=== PATIENT | female | born 1985 | race Caucasian/White ===

== ENCOUNTER 2017-02-06 14:44 | Emergency (ER) | payer BC ==
[2017-02-06 14:48] VITALS: RESP 20
[2017-02-06] MEDS ORDERED: HYDROcodone/APAP 5-325MG 1 EACH TAB PO STA (15:05)
--- NOTE | 2017-02-06 15:10 | ED ---
Lower Extremity Injury HPI - General Chief Complaint: Extremity Injury, Lower Stated Complaint: Leg injury Time Seen by Provider: 02/06/17 14:51 Source: patient, RN notes reviewed Mode of arrival: ambulatory Limitations: no limitations - History of Present Illness Initial Comments: Patient is a 31-year-old female presents to the emergency room for evaluation of left groin pain and bruising. Patient states she was playing softball on Monday. Patient states that she strained a muscle in her groin. Patient states that she kept playing. Patient states that she also had a softball tournament yesterday and still continued to play. Patient states she woke up this morning and noticed bruising on the proximal medial portion of her thigh along with severe pain. Patient states she's been taking ibuprofen with no relief of symptoms. Patient denies history of blood clots. Patient denies taking any blood thinners. Patient states she's having constant 10 out of 10 pain that is worse with movement. Patient denies any direct/blunt trauma to her leg. Patient denies any other injuries or complaints. - Related Data Home Medications Medication Instructions Recorded Confirmed Ibuprofen [Motrin] 800 mg PO Q8H PRN 02/06/17 02/06/17 Previous Rx's Medication Instructions Recorded HYDROcodone/APAP 5-325MG [[place] 1 tab PO Q6HR PRN #12 tab 02/06/17 5-325] Orphenadrine [Norflex] 100 mg PO Q12H PRN #12 tablet.er 02/06/17 Allergies Allergy/AdvReac Type Severity Reaction Status Date / Time No Known Allergies Allergy Verified 02/06/17 15:38 Review of Systems ROS Statement: Those systems with pertinent positive or pertinent negative responses have been documented in the HPI. ROS Other: All systems not noted in ROS Statement are negative. Past Medical History Past Medical History: No Reported History History of Any Multi-Drug Resistant Organisms: None Reported Past Surgical History: Orthopedic Surgery Past Psychological History: Anxiety Smoking Status: Current every day smoker Past Alcohol Use History: Occasional Past Drug Use History: Marijuana General Exam - General Exam Comments Initial Comments: Sitting in exam room, no distress. Limitations: no limitations General appearance: alert, in no apparent distress Head exam: Present: atraumatic, normocephalic, normal inspection Eye exam: Present: normal appearance ENT exam: Present: normal exam Neck exam: Present: normal inspection Respiratory exam: Absent: respiratory distress Left Upper Leg exam: Present: tenderness (Palpating over the hematoma), ecchymosis ( Ecchymosis/hematoma on proximal medial portion of the thigh). Absent: normal inspection Knee exam: Present: normal inspection, full ROM. Absent: tenderness Lower Leg exam: Present: normal inspection, full ROM. Absent: tenderness Ankle exam: Present: normal inspection, full ROM. Absent: tenderness Neurovascular tendon exam: Present: no vascular compromise. Absent: pulse deficit (2+ dorsal pedal and posterior tibial pulses), abnormal cap refill ( Capillary refill less than 2 seconds) Back exam: Present: normal inspection Neurological exam: Present: alert, oriented X3, CN II-XII intact Psychiatric exam: Present: normal affect, normal mood Skin exam: Present: warm, dry, intact. Absent: rash Course Vital Signs 02/06/17 02/06/17 14:46 17:07 Temperature 97.7 F 97.3 F L Pulse Rate 86 98 Respiratory 20 20 Rate Blood Pressure 138/69 119/70 O2 Sat by Pulse 99 99 Oximetry Medical Decision Making - Medical Decision Making patient is a 31-year-old female presents to emergency room for evaluation of left leg pain and bruising. X-ray shows no significant findings. Ultrasound shows no sign of DVT. Advised to continue icing the area. Patient sent him with pain medications and advised to follow-up with primary care provider. Patient states she understands her diagnosis discussed with her. Return parameters discussed. Case discussed with Dr. Walker. - Radiology Data Radiology results: report reviewed, image reviewed Disposition Clinical Impression: Hematoma of left lower extremity, Muscle strain Disposition: HOME SELF-CARE Condition: Good Instructions: Muscle Strain (ED), Hematoma (ED) Additional Instructions: Ice on and off for 10-15 minutes for the next 24-48 hours. Take pain medications as needed. Please follow-up with primary care provider if symptoms do not improve in 7-10 days. If new symptoms develop or symptoms worsen, please return to the ER. Prescriptions: HYDROcodone/APAP 5-325MG [[place] 5-325] 1 tab PO Q6HR PRN #12 tab PRN Reason: Pain Orphenadrine [Norflex] 100 mg PO Q12H PRN #12 tablet.er PRN Reason: Pain Referrals: Jorge Kelly MD [Primary Care Provider] - 1-2 days Time of Disposition: 16:54
--- NOTE | 2017-02-06 15:30 | XR ---
EXAMINATION TYPE: XR pelvis AP view DATE OF EXAM: 02/06/2017 CLINICAL HISTORY: pain TECHNIQUE: Single view the pelvis is submitted. FINDINGS: No evidence for fracture, dislocation or bony lesion. Joint spaces are well-preserved. S I joints appear symmetric. IMPRESSION: 1. No acute fracture or dislocation seen. ICD 10 NO FRACTURE, INITIAL EVALUATION
--- NOTE | 2017-02-06 15:31 | XR ---
EXAMINATION TYPE: XR femur LT DATE OF EXAM: 02/06/2017 CLINICAL HISTORY: pain TECHNIQUE: Two views of the left femur are obtained. COMPARISON: None. FINDINGS: There is no acute fracture or dislocation seen of the femur. The hip and knee joints carly ear within normal limits. The overlying soft tissue appears unremarkable. IMPRESSION: There is no acute fracture or dislocation seen of the femur. ICD 10 NO FRACTURE, INITIAL EVALUATION
--- NOTE | 2017-02-06 16:22 | US ---
EXAMINATION TYPE: US venous doppler duplex LE LT DATE OF EXAM: 02/06/2017 3:59 PM COMPARISON: NONE CLINICAL HISTORY: 31-year-old female with pain, bruise on medial upper left thigh. Patient states di ving while playing softball on Monday. No hx of DVT or on blood thinners. SIDE PERFORMED: Left TECHNIQUE: The lower extremity deep venous system is examined utilizing real time linear array sonog jemal with graded compression, doppler sonography and color-flow sonography. FINDINGS: VESSELS IMAGED: External Iliac Vein (EIV) Common Femoral Vein Deep Femoral Vein Greater Saphenous Vein * Femoral Vein Popliteal Vein Small Saphenous Vein * Proximal Calf Veins (* superficial vessels) Left Leg: Appears negative for DVT IMPRESSION: No evidence for DVT within the left lower extremity imaged from the groin to the upper calf.
[2017-02-06 17:08] VITALS: BP 119/70; PULSE 98; TEMP 97.3
== END 2017-02-06 17:08 | disposition home or self-care (01) ==
LOC: EC 14:44
DX: S86.912A Strain of unspecified muscle(s) and tendon(s) at lower leg level, left leg, initial encounter (principal); F17.200 Nicotine dependence, unspecified, uncomplicated; X58.XXXA Exposure to other specified factors, initial encounter; Y93.64 Activity, baseball
CPT/HCPCS: 72170; 99284

== ENCOUNTER 2017-05-07 06:58 | Emergency (ER) | payer BC ==
[2017-05-07 07:06] VITALS: BP 117/77; PULSE 122; RESP 20; TEMP 99.1
[2017-05-07] MEDS ORDERED: KETOROLAC 30 MG/ML 1 ML VIAL IM STA (07:31)
--- NOTE | 2017-05-07 08:05 | ED ---
General Adult HPI - General Chief complaint: Wound/Laceration Stated complaint: Leg Laceration Time Seen by Provider: 05/07/17 07:22 Source: patient, RN notes reviewed Mode of arrival: ambulatory - History of Present Illness Initial comments: 32-year-old female with no significant past medical history presents status post fall with left knee laceration. Patient was climbing into a window of her home after locking herself, slipped and hit her knee on the DTE meter box. Patient was ambulatory. Pain only over the laceration. She states her tetanus was updated 2 years ago. No other injury. No old for ankle pain. No hip pain. No head or neck trauma. - Related Data Previous Rx's Medication Instructions Recorded Cephalexin [Keflex] 500 mg PO Q8HR #21 cap 05/07/17 Ibuprofen [Motrin] 600 mg PO Q8HR PRN #24 tab 05/07/17 Allergies Allergy/AdvReac Type Severity Reaction Status Date / Time No Known Allergies Allergy Verified 02/06/17 15:38 Review of Systems ROS Statement: Those systems with pertinent positive or pertinent negative responses have been documented in the HPI. ROS Other: All systems not noted in ROS Statement are negative. Past Medical History Past Medical History: No Reported History History of Any Multi-Drug Resistant Organisms: None Reported Past Surgical History: Orthopedic Surgery Past Psychological History: Anxiety Smoking Status: Current every day smoker Past Alcohol Use History: Occasional Past Drug Use History: Marijuana General Exam General appearance: alert, in no apparent distress Head exam: Present: atraumatic, normocephalic Eye exam: Present: normal appearance, PERRL ENT exam: Present: normal exam Neck exam: Present: full ROM. Absent: tenderness Respiratory exam: Present: normal lung sounds bilaterally Cardiovascular Exam: Present: regular rate, normal rhythm GI/Abdominal exam: Present: soft. Absent: distended, tenderness Extremities exam: Present: other (Large stellate laceration over the distal left 5 in proximal knee. Greatest diameter is 10-12 cm, full-thickness with adipose tissue exposed, no underlying muscle or tendon visible.) Neurological exam: Present: alert, oriented X3 Psychiatric exam: Present: normal affect, normal mood Skin exam: Present: warm, dry Course Vital Signs 05/07/17 05/07/17 07:03 08:20 Temperature 99.1 F 99.1 F Pulse Rate 122 H 122 H Respiratory 20 20 Rate Blood Pressure 117/77 117/77 O2 Sat by Pulse 98 98 Oximetry Procedures - Laceration Laceration #1 Consent Obtained: verbal consent Time Out Performed: Yes Description: stellate, flap, irregular, clean Anesthetic Used: lidocaine 1% Anesthesia Technique: local infiltration Pre-repair: wound explored, irrigated extensively, deep structures intact, wound margins revised Type of Sutures: nylon Size of Sutures: 3-0 Number of Sutures: 17 Technique: simple, interrupted Patient Tolerated Procedure: well Laceration #2 Consent Obtained: verbal consent Time Out Performed: Yes Indication: laceration Site: lower extremity Description: linear Depth: simple, single layer Anesthetic Used: lidocaine 1% Pre-repair: irrigated extensively, deep structures intact Size of Sutures: other (Steri-Strip) Patient Tolerated Procedure: well Medical Decision Making - Medical Decision Making 32-year-old female presenting with large stellate irregular laceration left knee , injury from metallic box. No concern for foreign body. Patient is anesthetized, wound is extensively irrigated with normal saline. Her tetanus is up-to-date. She is given intramuscular Toradol for pain control. 17 3-0 nylon sutures are placed. Patient tolerates procedure well. Wound is dressed with 4 x 4's bacitracin and an Nick wrap is applied. Patient will follow-up for suture removal in 14 days. She is given prophylactic antibiotics and Motrin for pain. Return to emergency department with signs of infection. Disposition Clinical Impression: Laceration Disposition: HOME SELF-CARE Condition: Good Instructions: Laceration (ED) Additional Instructions: Treatment in the emergency department with signs of infection, return for suture removal in 14 days. Prescriptions: Cephalexin [Keflex] 500 mg PO Q8HR #21 cap Ibuprofen [Motrin] 600 mg PO Q8HR PRN #24 tab PRN Reason: Pain Referrals: Jorge Kelly MD [Primary Care Provider] - 1-2 days Time of Disposition: 08:04
== END 2017-05-07 08:20 | disposition home or self-care (01) ==
LOC: EC 06:58
DX: S81.012A Laceration without foreign body, left knee, initial encounter (principal); W01.198A Fall on same level from slipping, tripping and stumbling with subsequent striking against other object, initial encounter; Y93.39 Activity, other involving climbing, rappelling and jumping off; Y92.009 Unspecified place in unspecified non-institutional (private) residence as the place of occurrence of the external cause
CPT/HCPCS: 99282; 12004; 96372; J1885

== ENCOUNTER 2019-08-08 08:10 | Day surgery (SDC) | payer BC ==
[2019-08-01 14:16] VITALS: BMI 36.6
[~2019-08-08 08:10] MED LIST: DEXAMETHASONE SOD PHOSPHATE 10 MG/ML 1 ML VIAL IV ONE; LACTATED RINGERS 1,000 ML IV SCH; MIDAZOLAM 2 MG/2 ML VIAL IV PRN; ONDANSETRON 4 MG/2 ML VIAL IVP ONE; SCOPOLAMINE 1.5MG/72HR PATCH TRANSDERM ONE
[2019-08-08 08:30] VITALS: TEMP 98.2
[2019-08-08] MEDS ORDERED: fentaNYL (PF) 50 MCG/ML 2 ML AMP IVP ONE (09:01)
--- NOTE | 2019-08-08 09:28 | P.ANPRN ---
Procedure Note - Anesthesia - Nerve Block Performed Left Popliteal Single Time Out Performed: Yes (901) Date of Procedure: 08/08/19 Procedure Start Time: 09:01 Procedure Stop Time: 09:06 Location of Patient: PreOp Indication: Acute Post-Operative Pain, Requested by Surgeon Specifically requested for management of pain by DrKeo: Sam Majano Sedation Type: Sedate with meaningful contact maintained Preparation: Sterile Prep Position: Right Lateral Catheter: None Needle Types: Pajunk Needle Gauge: 20 Ultrasound used to visualize needle placement: Yes Ultrasound used to observe medication spread: Yes Narrative: Ropivacaine 0.25% 20 mL Blood Aspirated: No Pain Paresthesia on Injection Noted: No Resistance on Injection: Normal Image Stored and Saved: Yes Events: Uneventful and Well Tolerated Left Adductor Canal Single Time Out Performed: Yes (901) Date of Procedure: 08/08/19 Procedure Start Time: 09:07 Procedure Stop Time: 09:10 Location of Patient: PreOp Indication: Acute Post-Operative Pain, Requested by Surgeon Specifically requested for management of pain by DrKeo: Sam Majano Sedation Type: Sedate with meaningful contact maintained Preparation: Sterile Prep Position: Supine Catheter: None Needle Types: Pajunk Needle Gauge: 20 Ultrasound used to visualize needle placement: Yes Ultrasound used to observe medication spread: Yes Narrative: Ropivacaine 0.25 20 mL Blood Aspirated: No Pain Paresthesia on Injection Noted: No Resistance on Injection: Normal Image Stored and Saved: Yes Events: Uneventful and Well Tolerated
[2019-08-08] MEDS ORDERED: PROPOFOL 10 MG/ML 20 ML VIAL IV ONE (10:41)
[2019-08-08] MEDS ORDERED: LIDOCAINE 1% INJ 10MG/ML (20 ML MDV) ONE (10:41)
[2019-08-08] MEDS ORDERED: fentaNYL (PF) 50 MCG/ML 2 ML AMP ONE (10:41)
[2019-08-08] MEDS ORDERED: SUCCINYLCHOLINE CHLORIDE 100 MG/5 ML SYR IV ONE (10:41)
[2019-08-08] MEDS ORDERED: KETAMINE 10 MG/ML 20 ML VIAL ONE (10:41)
[2019-08-08] MEDS ORDERED: ROPIVACAINE 5 MG/ML 30 ML VIAL ONE (10:41)
[2019-08-08] MEDS ORDERED: MIDAZOLAM 2 MG/2 ML VIAL ONE (10:41)
[2019-08-08] MEDS ORDERED: HYDROmorphone (PF) 1 MG/ML ONE (10:41)
[2019-08-08] MEDS ORDERED: LACTATED RINGERS 1,000 ML IV ONE (11:29)
--- NOTE | 2019-08-08 12:47 | XR ---
Limited left ankle HISTORY: Ankle fracture 6 intraoperative C-arm images document the procedure.
--- NOTE | 2019-08-08 12:48 | FL ---
Fluoroscopy HISTORY: Left Ankle fracture 2 minutes 10 seconds fluoroscopy time supplied to the referring clinician. 6 intraoperative C-arm im ages document the procedure. See dictated report from orthopedic surgery.
--- NOTE | 2019-08-08 12:57 | P.OP ---
Date of Procedure: 08/08/19 Preoperative Diagnosis: 1. Left trimalleolar ankle fracture dislocation 2. Current every day cigarette smoker Postoperative Diagnosis: 1. Left trimalleolar ankle fracture dislocation with syndesmotic disruption 2. Current every day cigarette smoker Procedure(s) Performed: 1. Open reduction and internal fixation of left medial and lateral malleolus, nonoperative management posterior malleolus 2. Open reduction internal fixation of left ankle syndesmosis with tight rope device 3. Manual application of joint stress by physician for radiography, left ankle 4. Application of short leg splint by physician, left ankle Anesthesia: GLADYS, regional Surgeon: Sam Majano Barrel Ribs Solderer #1: Reji Sanchez Estimated Blood Loss (ml): 15 IV fluids (ml): 1,200 Pathology: none sent Condition: stable Disposition: PACU Indications for Procedure: The patient is a very pleasant 34-year-old female with a medical history significant for being a current every day cigarette smoker who sustained an isolated injury to her left ankle. She was seen in my office a week ago where x-rays showed a displaced trimalleolar ankle fracture area she underwent application of a splint in the office and then we discussed the need for surgical fixation due to her young age and amount of displacement on x-ray. We discussed she is at a higher risk of having a complication due to her cigarette smoking. We had a long discussion on the potential risks and complications of surgery including but not limited to risk of anesthesia, infection, delayed wound healing, nonunion, malunion, malreduction, malreduction of the ankle mortise, symptomatically hardware, hardware failure, DVT, PE, chronic pain, and inability to regain preinjury level of function, generalized dissatisfaction with surgery, post rheumatic ankle arthritis, and possibly loss of life or limb. The patient acknowledges these potential complications and realizes that other less common competitions are possible. She also understands that she is at a higher risk of having a complication due to her cigarette smoking. She provided her verbal and written consent to go forward with surgery. Description of Procedure: The patient was identified in preop holding and the correct left ankles marked with my initials. I reviewed the consent form with the patient and her family. All their questions were answered. The patient was then given a block by anesthesia. She was brought back to the operating room. She was positioned on the OR table where general anesthetic and preoperative antibiotics were given. A tourniquet was applied to the proximal aspect of the left leg. The right leg was secured to the table with foam and tape. A bump was placed on the left buttock internally rotate the leg and facilitate intraoperative imaging. A ramp was placed under the left leg. The left leg was then prepped and draped in the standard sterile fashion. Prior to starting surgery timeout was performed identifying the correct patient, operative extremity, and procedure. The patient's leg was then elevated, exsanguinated with an Esmarch bandage, and the tourniquet was inflated to 250 mmHg. I began by outlining a straight lateral incision to the lateral aspect of the distal fibula area skin incision was made a scalpel. Dissection was carried down carefully to the subcuticular tissue with tenotomy scissors. A branch of the superficial peroneal nerve was identified and carefully retracted. The periosteum off the lateral malleolus was elevated distally and proximally the fascia over the peroneal muscles was elevated sharply. The fracture site was carefully exposed. Early consolidating hematoma and callus was carefully removed. Once the fracture site was mobilized and exposed a gentle reduction was performed. The proximal spike of the distal fragment was able to ku in nicely to the proximal shaft. It was held reduced with 2 [id number] reduction clamps. I then placed a nonlocking 2.7 mm lag screw across the fracture site. A precontoured distal fibular plate was placed over the lateral aspect of the ankle. It was secured to the fibula and centered proximally with 3 nonlocking 3.5 mm screws. Distally four nonlocking 3.5 mm screws were placed. Attention was then turned to the medial malleolus. A longitudinal incision was made centered over the medial malleolus. Dissection was carried down carefully to 16 is tissue with tenotomy scissors. The saphenous vein and nerve were carefully retracted anteriorly. The medial malleolus fracture was carefully identified. The periosteum was elevated to allow cortical read. The fracture fragment was gently opened with a dental pick and the joint inspected. Early consolidating hematoma and callus was removed. The joint was irrigated. A unicortical 2.5 mm hole was made just proximal to the fracture. The medial malleolus was held reduced and a [id number] reduction clamp was placed holding the reduction with 1 elizabeth in the previously made drill hole and the second time at the tip of the medial malleolus. I then placed 2 nonlocking 3.5 mm screws both measuring 46 mm. Attention was then turned back to the fibula. Both in external rotation stress x-ray and a cotton test were performed. There was widening of the medial clear space and gapping at the incisura. I interpreted this as an unstable syndesmotic complex requiring fixation. An 8 inch Bardales reduction clamp was placed with 1 elizabeth over the medial malleolus and the second elizabeth over the distal fibula. A K wire was placed just proximal to the lag screw. A countersunk was placed corresponding hole in the plate. A tight rope device was then placed with the Endobutton set flush against the tibia medially. The tight rope was tightened and tied. Final fluoroscopic images were taken. Both wounds were thoroughly irrigated and closed in layers with 0 Vicryl for the deep fascial layer, 3-0 Monocryl for the deep subcu, and 3-0 nylon Allgower modification of the Donati stitch for the skin. A sterile dressing consisting of quarter and stretchy Steri-Strips, Betadine soaked Adaptic, 4 x 4, and web roll was applied. The patient was then awoken from her anesthetic, transferred from the or table to a rney, and brought to recovery haven't helped procedure well. Reji Sanchez PA-C was required as a skilled respiratory equipment assistant for patient positioning, surgical exposure, retraction, placement of hardware, closure of wounds, and application of splint. Plan: The patient is going to be discharged home as an outpatient. She instrument strictly nonweightbearing on her left leg. She will leave her splint on at all times. She'll be given a prescription for oral pain medication, stool softener, and aspirin for DVT prophylaxis. She'll need follow-up in the office in 2 weeks for splint removal, nonweightbearing x-rays of the left ankle, and likely suture removal. She was strongly encouraged to quit smoking to help with the healing process.
[2019-08-08] MEDS: HYDROmorphone 0.5 MG/0.5 ML SYRINGE IVP PRN ×4 (13:10→13:55)
[2019-08-08] MEDS: diphenhydrAMINE 50 MG/ML 1 ML VIAL IVP ONE ×2 (13:15→13:33)
[2019-08-08] MEDS: MEPERIDINE 50 MG/ML SYRINGE IVP ONE ×2 (13:31→13:37)
[2019-08-08 14:11] VITALS: RESP 16
[2019-08-08] MEDS ORDERED: HYDROcodone/APAP 10-325MG 1 EACH TAB PO ONE (14:23)
[2019-08-08 14:50] VITALS: BP 119/80; PULSE 111
== END 2019-08-08 14:58 | disposition home or self-care (01) ==
LOC: OR 08:10
PROVIDERS: ATTEND Orthopaedic Surgery
DX: S82.852A Displaced trimalleolar fracture of left lower leg, initial encounter for closed fracture (principal); S93.432A Sprain of tibiofibular ligament of left ankle, initial encounter; F17.210 Nicotine dependence, cigarettes, uncomplicated; Z79.891 Long term (current) use of opiate analgesic; W10.9XXA Fall (on) (from) unspecified stairs and steps, initial encounter
CPT/HCPCS: 64445; 76942; 81025

== ENCOUNTER 2021-08-19 21:55 | Emergency (ER) | payer BC ==
[2021-08-19 22:08] VITALS: BP 128/88; PULSE 104; RESP 18; TEMP 98.2
--- NOTE | 2021-08-19 22:33 | CT ---
EXAMINATION TYPE: CT brain cspine wo con DATE OF EXAM: 08/19/2021 COMPARISON: None HISTORY: fall, etoh CT DLP: 1516.6 mGycm Automated exposure control for dose reduction was used. Ventricles and sulci appear normal. There is no mass effect or midline shift. There is no sign of int racranial hemorrhage the calvarium is intact. There is normal aeration of the mastoid sinuses. The cervical vertebra have fairly normal spacing and alignment. Posterior elements are intact. Facet joints are intact. Prevertebral soft tissues appear normal. There is some mild hypertrophy of the amy noids. There is narrowing of the posterior nasopharyngeal airway. IMPRESSION: Negative CT scan of the cervical spine. Hypertrophy of the adenoids. Negative CT scan of the brain.
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
== END 2021-08-19 23:25 | disposition home or self-care (01) ==
LOC: EC 21:55
DX: Z04.3 Encounter for examination and observation following other accident (principal); Z79.82 Long term (current) use of aspirin
CPT/HCPCS: 70450; 72125; 99284

== ENCOUNTER 2023-08-31 21:36 | Emergency (ER) | payer BC ==
[2023-08-31 22:04] VITALS: BP 155/103; PULSE 108; RESP 18; TEMP 97.9
[2023-08-31] MEDS ORDERED: LIDOCAINE 1% INJ 10MG/ML (20 ML MDV) SQ ONE (22:26)
--- NOTE | 2023-08-31 22:37 | ED ---
ENT HPI - General Chief complaint: ENT Stated complaint: Ear ache Time Seen by Provider: 08/31/23 22:10 Source: patient Mode of arrival: ambulatory Limitations: no limitations - History of Present Illness Initial comments: 38-year-old female presenting with chief complaint of left-sided ear pain. Pain is been ongoing for the last week. Patient states that she bought some [id number] eardrops and pain was improving but today she had sudden onset worsening pain. She has no hearing loss. No otorrhea or bleeding from the ear. No fevers or chills. No redness or swelling behind the ear. - Related Data Home Medications Medication Instructions Recorded Confirmed HYDROcodone/APAP 5-325MG [[place] 2 tab PO Q6HR PRN 08/01/19 08/08/19 5-325] Ibuprofen [Motrin] 800 mg PO DAILY PRN 08/01/19 08/01/19 Previous Rx's Medication Instructions Recorded Aspirin 325 mg PO DAILY #14 tab 08/08/19 Docusate [Colace] 100 mg PO BID #28 capsule 08/08/19 HYDROcodone/APAP 10-325MG [[place] 1 tab PO Q4HR PRN 7 Days #42 tab 08/08/19 10-325] Allergies Allergy/AdvReac Type Severity Reaction Status Date / Time No Known Allergies Allergy Verified 08/31/23 21:48 Review of Systems ROS Statement: Those systems with pertinent positive or pertinent negative responses have been documented in the HPI. ROS Other: All systems not noted in ROS Statement are negative. Past Medical History Past Medical History: No Reported History Additional Past Medical History / Comment(s): FX LEFT ANKLE- STATES SHE HAS SPLINT WITH HAIM WRAP ON- STATES SHE HAS A BLISTER . History of Any Multi-Drug Resistant Organisms: None Reported Past Surgical History: Orthopedic Surgery Additional Past Surgical History / Comment(s): RIGHT FOREARM FX WITH SURGICAL REPAIR . Past Anesthesia/Blood Transfusion Reactions: No Reported Reaction Past Psychological History: No Psychological Hx Reported Smoking Status: Current every day smoker Past Alcohol Use History: Rare Past Drug Use History: None Reported - Past Family History Mother Family Medical History: No Reported History General Exam Limitations: no limitations General appearance: alert, in no apparent distress Head exam: Present: atraumatic, normocephalic Eye exam: Present: normal appearance Expanded TM/Canal exam: Foreign Body: Left TM (cotton swab) Neck exam: Present: normal inspection Respiratory exam: Absent: respiratory distress Cardiovascular Exam: Present: regular rate Neurological exam: Present: alert, oriented X3 Psychiatric exam: Present: normal affect, normal mood Skin exam: Present: warm, dry Course Vital Signs 08/31/23 21:46 Temperature 97.9 F Pulse Rate 108 H Respiratory 18 Rate Blood Pressure 155/103 O2 Sat by Pulse 97 Oximetry Procedures - Foreign Body Removal Ear Location: ear canal (L) Foreign Body Suspected: other (Cotton Swab from Q-Tip) Foreign Body Removed: yes Foreign Body Removal Technique: instrumentation Patient Tolerated Procedure: well Medical Decision Making - Medical Decision Making Was pt. sent in by a medical professional or institution (, ANIL, COMMISSION SALES ASSOCIATE, urgent care, hospital, or long term...) When possible be specific @ -No Did you speak to anyone other than the patient for history (EMS, parent, family, police, friend...)? What history was obtained from this source @ -No Did you review nursing and triage notes (agree or disagree)? Why? @ -I reviewed and agree with nursing and triage notes Were old charts reviewed (outside hosp., previous admission, EMS record, old EKG, old radiological studies, urgent care reports/EKG's, long term records)? Report findings @ -No old charts were reviewed Differential Diagnosis (chest pain, altered mental status, abdominal pain women, abdominal pain men, vaginal bleeding, weakness, fever, dyspnea, syncope, headache, dizziness, GI bleed, back pain, seizure, CVA, palpatations, mental health, musculoskeletal)? @ -Differential includes otitis media, otitis externa, mastoiditis, foreign body, this is not an all inclusive list EKG interpreted by me (3pts min.). @ -As above X-rays interpreted by me (1pt min.). @ -None done CT interpreted by me (1pt min.). @ -None done U/S interpreted by me (1pt. min.). @ -None done What testing was considered but not performed or refused? (CT, X-rays, U/S, labs)? Why? @ -None What meds were considered but not given or refused? Why? @ -None Did you discuss the management of the patient with other professionals (professionals i.e. , PA, COMMISSION SALES ASSOCIATE, lab, RT, psych nurse, medical social worker, tenant coordinator, teacher, special weapons and tactics officer, child welfare caseworker)? Give summary @ -No Was smoking cessation discussed for >3mins.? @ -No Was critical care preformed (if so, how long)? @ -No Were there social determinants of health that impacted care today? How? (Homelessness, low income, unemployed, alcoholism, drug addiction, transportation, low edu. Level, literacy, decrease access to med. care, intermediate, rehab)? @ -No Was there de-escalation of care discussed even if they declined (Discuss DNR or withdrawal of care, Hospice)? DNR status @ -No What co-morbidities impacted this encounter? (DM, HTN, Smoking, COPD, CAD, Cancer, CVA, ARF, Chemo, Hep., AIDS, mental health diagnosis, sleep apnea, morbid obesity)? @ -None Was patient admitted / discharged? Hospital course, mention meds given and route, prescriptions, significant lab abnormalities, going to OR and other pertinent info. @ -38-year-old female presenting with chief complaint of left ear pain. Has been ongoing for weeks. No hearing loss or discharge. On examination, as well as noted inside the ear canal. A combination of irrigation and instrumentation or use removed, soft. Patient is discharged home. Follow-up with PCP. Report back to ER with any new or worsening symptoms. Discussed return parameters and answered all questions. Patient conveyed verbal understanding and agreed to the plan. I discussed this case in detail with my attending Dr. Triplett Undiagnosed new problem with uncertain prognosis? @ -No Drug Therapy requiring intensive monitoring for toxicity (Heparin, Nitro, Insulin, Cardizem)? @ -No Were any procedures done? @ -ear foreign body removal Diagnosis/symptom? @ -Foreign body of the left ear Acute, or Chronic, or Acute on Chronic? @ -Acute Uncomplicated (without systemic symptoms) or Complicated (systemic symptoms)? @ -Uncomplicated Side effects of treatment? @ -No Exacerbation, Progression, or Severe Exacerbation? @ -No Poses a threat to life or bodily function? How? (Chest pain, [place], [place], pneumonia, PE, COPD, DKA, ARF, appy, cholecystitis, CVA, Diverticulitis, Homicidal, Suicidal, threat to staff... and all critical care pts) @ -No Disposition Clinical Impression: Foreign body in ear Disposition: HOME SELF-CARE Condition: Good Instructions (If sedation given, give patient instructions): Ear Foreign Body (ED) Additional Instructions: Report back to ER with any new or worsening symptoms. Is patient prescribed a controlled substance at d/c from ED?: No Referrals: None,Stated [Primary Care Provider] - 1-2 days Time of Disposition: 22:35
== END 2023-08-31 22:42 | disposition home or self-care (01) ==
LOC: EC 21:36
DX: T16.2XXA Foreign body in left ear, initial encounter (principal); F17.200 Nicotine dependence, unspecified, uncomplicated; X58.XXXA Exposure to other specified factors, initial encounter
CPT/HCPCS: 99282; 69200; J2001